=== PATIENT | female | born 1955 | race Caucasian/White ===

== ENCOUNTER 2019-07-26 11:47 | Inpatient (IN) | payer MEDICARE ==
[2019-07-26] MEDS ORDERED: Lorazepam 2 MG/ML VIAL ONE (12:14)
[2019-07-26] MEDS ORDERED: Morphine 4 MG/ML VIAL ONE (12:15)
[2019-07-26] MEDS ORDERED: Ondansetron PF 4 MG/2 ML Vial ONE (12:15)
[2019-07-26 12:24] LABS: #Eosinphils 0.2 thou/uL (0.0-0.7); #Lymphocytes 1.9 thou/uL (1.20-3.40); #Monocytes 1.1 thou/uL (0.11-0.59); #Neutrophils 13.8 thou/uL (1.40-6.50); %Basophils 0.2 % (0.0-1.0); %Lymphocytes 10.9 % (21.0-51.0); %Monocytes 6.5 % (0.0-10.0); %Neutrophils 81.4 % (42.0-75.0); Hemoglobin 11.4 g/dL (12.0-16.0); Mean Corpuscular HGB CONC 33.2 g/dL (32.0-36.0); Mean Corpuscular Volume 87.1 fL (78.0-98.0); Mean Platelet Volume 8.9 fL (7.4-10.4); Platelet Count 271 thou/uL (130-400); RBC Distribution Width 13.5 % (11.5-14.5); Red Blood Cell (RBC) Count 3.95 mill/uL (4.20-5.40)
[2019-07-26 12:44] LABS: ALT (SGPT) 14 U/L (8-55); AST (SGOT) 23 U/L (5-34); Albumin 3.6 g/dL (3.4-4.8); Alkaline Phosphatase 63 U/L (40-110); Anion Gap 12 mmol/L (10-20); BUN (Urea Nitrogen) 15 mg/dL (9.8-20.1); Bilirubin, Total 0.8 mg/dL (0.2-1.2); Calc. Creatinine Clearance 0 mL/min (70-130); Calcium 8.6 mg/dL (7.8-10.44); Carbon Dioxide 25 mmol/L (23-31); Chloride 105 mmol/L (98-107); Estimated GFR-MDRD 70; Glucose 163 mg/dL (80-115); Potassium 4.3 mmol/L (3.5-5.1); Protein, Total 6.6 g/dL (6.0-8.3); Sodium 138 mmol/L (136-145)
[2019-07-26] MEDS ORDERED: ISOVUE-370 76%-LOCM 1 ML ONE (13:08)
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
[2019-07-26] MEDS ORDERED: Lidocaine 1% w/Epinephrine 1:100K 20 ML VIAL ONE (14:25)
[2019-07-26] MEDS ORDERED: Adacel (T-DAP) 0.5 ML SYRINGE ONE (14:50)
--- NOTE | 2019-07-26 15:08 | RAD ---
XR Ankle Lt 3 View STANDARD: 07/26/2019 12:07 PM CLINICAL INDICATION: Pain COMPARISON: None. FINDINGS: Fracture:No fracture. Mild soft tissue prominence. Arthropathy:Mild osteoarthritis. Incidental findings:None of significance. IMPRESSION: 1. No acute osseous abnormality. 2. Soft tissue prominence of left ankle. Correlate clinically.
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
--- NOTE | 2019-07-26 15:17 | RAD ---
XR Elbow Rt 4 View STANDARD: 07/26/2019 12:06 PM CLINICAL INDICATION: Pain COMPARISON: None. FINDINGS: There is a subtle heterotopic density anterior to the proximal forearm on the lateral view, not well discerned on the additional views. No joint capsular distention visualized although there is obliquity of the lateral view which does limit assessment in this regard. IMPRESSION: 1. Small heterotopic density adjacent the anterior aspect of the proximal forearm on the lateral view . This could relate to a chronic heterotopic density. If there is concern for an acute avulsion fracture, recommend follow-up exam with a well-positioned AP and lateral view to more definitively as sess.. Transcribed Date/Time: 07/26/2019 3:31 PM
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
--- NOTE | 2019-07-26 15:25 | RAD ---
XR Shoulder Rt 3 View STANDARD: 07/26/2019 12:04 PM CLINICAL INDICATION: Pain COMPARISON: None. FINDINGS: Fracture:No fracture. Arthropathy:Mild osteoarthritis of right AC joint. Incidental findings:Surgical clips at right axilla. IMPRESSION: 1. No acute osseous abnormality.
[2019-07-26] MEDS ORDERED: hydrALAZINE 20 MG/ML VIAL SLOW IVP PRN (15:30)
[2019-07-26] MEDS ORDERED: Dextrose 5% in Water 1,000 ML IV PRN (15:30)
[2019-07-26] MEDS ORDERED: Promethazine HCl 25 MG/ML VIAL IM PRN (15:30)
[2019-07-26] MEDS ORDERED: Ondansetron PF 4 MG/2 ML Vial IVP PRN (15:30)
[2019-07-26] MEDS ORDERED: Dextrose 50% Abboject 50 ML SYRINGE SLOW IVP PRN (15:30)
[2019-07-26] MEDS ORDERED: Rib Fracture Protocol IV SCH (15:45)
[2019-07-26] MEDS ORDERED: Sodium Chloride 0.9% 1,000 ML IV SCH ×2 (16:00→22:00)
[2019-07-26] MEDS ORDERED: Triple Antibiotic Oint 1 GM Packet ONE (16:08)
[2019-07-26] MEDS ORDERED: Hydrocortisone Sod Succ/PF 100 mg/2 ml Vial ONE (16:36)
[2019-07-26] MEDS ORDERED: Fentanyl 100 MCG/2 ML VIAL ONE (16:56)
[2019-07-26 16:57] LABS: #Lymphocytes 1.1 thou/uL (1.20-3.40); #Monocytes 1.1 thou/uL (0.11-0.59); #Neutrophils 10.4 thou/uL (1.40-6.50); %Basophils 0.3 % (0.0-1.0); %Eosinophils 0.3 % (0.0-10.0); %Lymphocytes 8.9 % (21.0-51.0); %Monocytes 8.4 % (0.0-10.0); %Neutrophils 82.1 % (42.0-75.0); Hemoglobin 10.7 g/dL (12.0-16.0); Mean Corpuscular HGB CONC 33.8 g/dL (32.0-36.0); Mean Corpuscular Volume 85.8 fL (78.0-98.0); Mean Platelet Volume 8.9 fL (7.4-10.4); Platelet Count 234 thou/uL (130-400); RBC Distribution Width 13.3 % (11.5-14.5); White Blood Cell (WBC) Count 12.6 thou/uL (4.8-10.8)
[2019-07-26 17:16] LABS: Magnesium 1.6 mg/dL (1.6-2.6); Phosphorus 4.1 mg/dL (2.3-4.7)
[2019-07-26] MEDS ORDERED: Ketorolac Tromethamine 30 MG/ML VIAL IVP SCH (18:00)
[2019-07-26] MEDS ORDERED: Acetaminophen 650 MG Suppository PR SCH ×2 (18:00)
[2019-07-26] MEDS: traMADol HCl 50 MG TAB PO PRN (19:51)
[2019-07-26] MEDS: Cyclobenzaprine 10 MG TAB PO SCH (21:34)
[2019-07-26] MEDS: Famotidine/PF 20 mg/2ml Vial SLOW IVP SCH (21:34)
[2019-07-26] MEDS: Senokot S 8.6-50 MG TAB PO SCH (21:35)
[2019-07-26] MEDS: Gabapentin 100 MG CAP PO SCH (21:35)
[2019-07-26] MEDS: traMADol HCl 50 MG TAB PO SCH ×2 (21:59→23:18)
[2019-07-26] MEDS ORDERED: Sodium Chloride 0.9% 500 ML IV SCH (22:00)
[2019-07-26] MEDS: Scopolamine 1.5 mg/72 hour Patch TD SCH (22:11)
[2019-07-26] MEDS: Acetaminophen 325 MG TAB PO SCH (23:18)
[2019-07-26 23:25] LABS: Hemoglobin 9.9 g/dL (12.0-16.0); Platelet Count 215 thou/uL (130-400)
[2019-07-27 04:46] LABS: #Lymphocytes 1.6 thou/uL (1.20-3.40); #Monocytes 0.8 thou/uL (0.11-0.59); #Neutrophils 4.7 thou/uL (1.40-6.50); %Basophils 0.7 % (0.0-1.0); %Eosinophils 0.4 % (0.0-10.0); %Lymphocytes 22.1 % (21.0-51.0); %Monocytes 11.2 % (0.0-10.0); %Neutrophils 65.7 % (42.0-75.0); Hemoglobin 8.8 g/dL (12.0-16.0); Mean Corpuscular HGB CONC 34.1 g/dL (32.0-36.0); Mean Corpuscular Hemoglobin 29.5 pg (27.0-31.0); Mean Corpuscular Volume 86.3 fL (78.0-98.0); Mean Platelet Volume 8.9 fL (7.4-10.4); Platelet Count 191 thou/uL (130-400); RBC Distribution Width 13.5 % (11.5-14.5); Red Blood Cell (RBC) Count 2.97 mill/uL (4.20-5.40); White Blood Cell (WBC) Count 7.1 thou/uL (4.8-10.8)
[2019-07-27] MEDS: Acetaminophen 325 MG TAB PO SCH ×4 (05:02→23:27)
[2019-07-27] MEDS: traMADol HCl 50 MG TAB PO SCH ×4 (05:03→23:27)
[2019-07-27 05:07] LABS: Anion Gap 9 mmol/L (10-20); BUN (Urea Nitrogen) 12 mg/dL (9.8-20.1); Calc. Creatinine Clearance 0 mL/min (70-130); Calcium 7.6 mg/dL (7.8-10.44); Carbon Dioxide 28 mmol/L (23-31); Chloride 103 mmol/L (98-107); Estimated GFR-MDRD 82; Glucose 123 mg/dL (80-115); Magnesium 1.7 mg/dL (1.6-2.6); Phosphorus 3.8 mg/dL (2.3-4.7); Potassium 3.7 mmol/L (3.5-5.1); Sodium 136 mmol/L (136-145)
[2019-07-27] MEDS ORDERED: Hydrocortisone Sod Succ/PF 100 mg/2 ml Vial IVP SCH (06:00)
[2019-07-27] MEDS: traMADol HCl 50 MG TAB PO PRN ×3 (06:36→21:03)
[2019-07-27 06:49] VITALS: BMI 57.6
[2019-07-27] MEDS ORDERED: Prevnar 13-Val Conj/PF 0.5 ML SYRINGE IM ONE (09:00)
[2019-07-27] MEDS ORDERED: FLU VACC TS2019-20(65YR UP)/PF 180 MCG/0.5 ML SYRINGE IM ONE (09:00)
[2019-07-27] MEDS: Famotidine/PF 20 mg/2ml Vial SLOW IVP SCH ×2 (10:21→21:03)
[2019-07-27] MEDS: Ezetimibe 10 MG TAB PO SCH (10:22)
[2019-07-27] MEDS: Senokot S 8.6-50 MG TAB PO SCH ×2 (10:23→21:04)
[2019-07-27] MEDS: Levothyroxine Sodium 50 MCG TAB PO SCH (10:23)
[2019-07-27] MEDS: Polyethylene Glycol 3350 17 GM Packet PO SCH (10:23)
[2019-07-27] MEDS: Cyclobenzaprine 10 MG TAB PO SCH ×2 (10:23→21:05)
[2019-07-27] MEDS: Gabapentin 100 MG CAP PO SCH (10:23)
[2019-07-27] MEDS ORDERED: Ketorolac Tromethamine 30 MG/ML VIAL IVP SCH (12:15)
[2019-07-27 12:47] LABS: Hemoglobin 8.6 g/dL (12.0-16.0)
[2019-07-27] MEDS: Ketorolac Tromethamine 30 MG/ML VIAL IVP SCH ×2 (18:54→23:28)
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
[2019-07-27] MEDS: Gabapentin 300 MG CAP PO SCH (21:03)
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
[2019-07-28] MEDS: Acetaminophen 325 MG TAB PO SCH ×4 (05:18→23:47)
[2019-07-28] MEDS: traMADol HCl 50 MG TAB PO SCH ×4 (05:18→23:46)
[2019-07-28] MEDS: Ketorolac Tromethamine 30 MG/ML VIAL IVP SCH ×4 (05:19→23:47)
[2019-07-28 05:47] LABS: #Eosinphils 0.2 thou/uL (0.0-0.7); #Lymphocytes 1.7 thou/uL (1.20-3.40); #Monocytes 0.7 thou/uL (0.11-0.59); %Basophils 0.7 % (0.0-1.0); %Eosinophils 3.2 % (0.0-10.0); %Lymphocytes 30.1 % (21.0-51.0); %Monocytes 12.2 % (0.0-10.0); %Neutrophils 53.9 % (42.0-75.0); Hemoglobin 7.8 g/dL (12.0-16.0); Mean Corpuscular HGB CONC 33.6 g/dL (32.0-36.0); Mean Corpuscular Hemoglobin 29.2 pg (27.0-31.0); Mean Platelet Volume 8.8 fL (7.4-10.4); Platelet Count 162 thou/uL (130-400); RBC Distribution Width 13.5 % (11.5-14.5); Red Blood Cell (RBC) Count 2.66 mill/uL (4.20-5.40); White Blood Cell (WBC) Count 5.5 thou/uL (4.8-10.8)
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
[2019-07-28] MEDS: Cyclobenzaprine 10 MG TAB PO SCH ×2 (08:24→20:30)
[2019-07-28] MEDS: Gabapentin 300 MG CAP PO SCH ×2 (08:24→20:30)
[2019-07-28] MEDS: Senokot S 8.6-50 MG TAB PO SCH ×2 (08:24→20:30)
[2019-07-28] MEDS: Ezetimibe 10 MG TAB PO SCH (08:24)
[2019-07-28] MEDS: Levothyroxine Sodium 50 MCG TAB PO SCH (08:24)
[2019-07-28] MEDS: Polyethylene Glycol 3350 17 GM Packet PO SCH (08:25)
[2019-07-28] MEDS: Famotidine/PF 20 mg/2ml Vial SLOW IVP SCH (08:25)
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
[2019-07-28] MEDS: traMADol HCl 50 MG TAB PO PRN (22:24)
[2019-07-29] MEDS: traMADol HCl 50 MG TAB PO PRN (04:27)
[2019-07-29] MEDS: Acetaminophen 325 MG TAB PO SCH ×4 (06:12→23:10)
[2019-07-29] MEDS: traMADol HCl 50 MG TAB PO SCH ×4 (06:12→23:10)
[2019-07-29] MEDS: Ketorolac Tromethamine 30 MG/ML VIAL IVP SCH (06:13)
[2019-07-29 06:17] LABS: #Eosinphils 0.3 thou/uL (0.0-0.7); #Lymphocytes 1.6 thou/uL (1.20-3.40); #Monocytes 0.7 thou/uL (0.11-0.59); %Basophils 0.9 % (0.0-1.0); %Eosinophils 5.6 % (0.0-10.0); %Lymphocytes 27.9 % (21.0-51.0); %Monocytes 11.9 % (0.0-10.0); %Neutrophils 53.8 % (42.0-75.0); Hemoglobin 8.3 g/dL (12.0-16.0); Mean Corpuscular HGB CONC 34.2 g/dL (32.0-36.0); Mean Corpuscular Volume 87.9 fL (78.0-98.0); Mean Platelet Volume 8.8 fL (7.4-10.4); Platelet Count 159 thou/uL (130-400); RBC Distribution Width 13.3 % (11.5-14.5); Red Blood Cell (RBC) Count 2.75 mill/uL (4.20-5.40); White Blood Cell (WBC) Count 5.7 thou/uL (4.8-10.8)
[2019-07-29] MEDS: Cyclobenzaprine 10 MG TAB PO SCH ×2 (09:30→20:21)
[2019-07-29] MEDS: Senokot S 8.6-50 MG TAB PO SCH ×2 (09:30→20:21)
[2019-07-29] MEDS: Levothyroxine Sodium 50 MCG TAB PO SCH (09:30)
[2019-07-29] MEDS: Gabapentin 300 MG CAP PO SCH ×2 (09:30→20:21)
[2019-07-29] MEDS: Ibuprofen 600 MG TAB PO SCH ×3 (09:30→20:21)
[2019-07-29] MEDS: Lisinopril 10 MG TAB PO SCH (09:30)
[2019-07-29] MEDS: Ezetimibe 10 MG TAB PO SCH (09:32)
[2019-07-29] MEDS: Polyethylene Glycol 3350 17 GM Packet PO SCH (09:33)
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
[2019-07-29] MEDS: Scopolamine 1.5 mg/72 hour Patch TD SCH (21:40)
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
[2019-07-30] MEDS: Acetaminophen 325 MG TAB PO SCH ×2 (05:08→11:30)
[2019-07-30] MEDS: traMADol HCl 50 MG TAB PO SCH ×2 (05:09→11:30)
[2019-07-30 05:31] LABS: #Eosinphils 0.4 thou/uL (0.0-0.7); #Lymphocytes 1.4 thou/uL (1.20-3.40); #Monocytes 0.5 thou/uL (0.11-0.59); #Neutrophils 2.6 thou/uL (1.40-6.50); %Basophils 0.6 % (0.0-1.0); %Eosinophils 7.5 % (0.0-10.0); %Lymphocytes 28.7 % (21.0-51.0); %Neutrophils 53.2 % (42.0-75.0); Hemoglobin 8.6 g/dL (12.0-16.0); Mean Corpuscular HGB CONC 33.9 g/dL (32.0-36.0); Mean Corpuscular Hemoglobin 29.9 pg (27.0-31.0); Mean Corpuscular Volume 88.3 fL (78.0-98.0); Platelet Count 183 thou/uL (130-400); RBC Distribution Width 13.6 % (11.5-14.5); Red Blood Cell (RBC) Count 2.86 mill/uL (4.20-5.40); White Blood Cell (WBC) Count 4.9 thou/uL (4.8-10.8)
[2019-07-30] MEDS: Ezetimibe 10 MG TAB PO SCH (07:59)
[2019-07-30] MEDS: Ibuprofen 600 MG TAB PO SCH ×2 (07:59→16:06)
[2019-07-30] MEDS: Levothyroxine Sodium 50 MCG TAB PO SCH (07:59)
[2019-07-30] MEDS: Lisinopril 10 MG TAB PO SCH (07:59)
[2019-07-30] MEDS: Gabapentin 300 MG CAP PO SCH (07:59)
[2019-07-30] MEDS: Cyclobenzaprine 10 MG TAB PO SCH (07:59)
[2019-07-30] MEDS: Senokot S 8.6-50 MG TAB PO SCH (08:00)
[2019-07-30] MEDS: Polyethylene Glycol 3350 17 GM Packet PO SCH (08:00)
[2019-07-30] MEDS ORDERED: Enoxaparin Sodium 40 MG/0.4 ML SYRINGE SC SCH (09:00)
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
[2019-07-30 11:19] VITALS: BP 117/74; TEMP 98.6
== END 2019-07-30 15:30 | disposition home or self-care (01) | DRG 964 ==
LOC: ERS 11:47 → SURG B 18:36
PROVIDERS: ADMIT Surgery; ATTEND Surgery
PROC: 30233N1 Transfusion of Nonautologous Red Blood Cells into Peripheral Vein, Percutaneous Approach (ICD-10-PCS; principal; 2019-07-28)
PROC: 3E0234Z Introduction of Serum, Toxoid and Vaccine into Muscle, Percutaneous Approach (ICD-10-PCS; 2019-07-28)
PROC: 3E02340 Introduction of Influenza Vaccine into Muscle, Percutaneous Approach (ICD-10-PCS; 2019-07-28)
DX: S36.892A Contusion of other intra-abdominal organs, initial encounter (principal); S22.42XA Multiple fractures of ribs, left side, initial encounter for closed fracture; S27.321A Contusion of lung, unilateral, initial encounter; S22.22XA Fracture of body of sternum, initial encounter for closed fracture; D62 Acute posthemorrhagic anemia; D84.9 Immunodeficiency, unspecified; S00.83XA Contusion of other part of head, initial encounter; I10 Essential (primary) hypertension; V44.5XXA Car driver injured in collision with heavy transport vehicle or bus in traffic accident, initial encounter; Z79.899 Other long term (current) drug therapy; Z79.82 Long term (current) use of aspirin; Z79.890 Hormone replacement therapy; Z23 Encounter for immunization
CPT/HCPCS: 12001; 36415; 36430; 70450; 71260; 72125; 74177; 80048; 80053; 82533; 83735; 84100; 85025; 86850; 86900; 86901; 90471; 90662; 90715; 93005; 96374; 96375; G0008; G0390; J1650; J1720; J1885; J2001; J2060; J2270; J2405; J3010; P9016; P9045; Q9966; S0028